=== PATIENT | male | born 1950 | race Caucasian/White ===

== ENCOUNTER → 2020-05-22 | Outpatient (CLI) | payer OTHER ==
[~2020-05-22] MED LIST: ACET500T15 PO; ATOR1TAB21 PO; FLOM0.4C39 PO; FLON1SPR; GABA-282 PO; METO1TAB32 PO; ROPI4TAB3 PO; TRAM50TA2 PO
== END ==
LOC: M LABSMTC 10:28
PROVIDERS: ATTEND Anesthesiology
DX: Z01.812 Encounter for preprocedural laboratory examination (principal); Z20.822 Contact with and (suspected) exposure to COVID-19

== ENCOUNTER 2020-05-27 09:55 | Day surgery (SDC) | payer MEDICARE, MEDICAID ==
[~2020-05-27] VITALS: Ht 167.6 cm; Wt 127.0 kg
[~2020-05-27 09:55] MED LIST changes: +NS 1,000 ML IV ONE
[2020-05-27] MEDS ORDERED: NS 1,000 ML IV ONE (10:40)
[2020-05-27] MEDS ORDERED: LIDOCAINE 2% 100MG/5ML SDV (FOR ANES.) As Ordered ONE (11:39)
[2020-05-27] MEDS ORDERED: propofoL 500 MG/50 ML VIAL As Ordered ONE (11:39)
--- NOTE | 2020-05-27 11:48 | ROOR ---
Patient Name: Abner Aragon Procedure Date: 05/27/2020 11:18 AM Date of : 1950 Age: 69 Room: [facility] Gender: Male Note Status: Finalized Procedure: Colonoscopy Indications: Screening for colorectal malignant neoplasm Providers: Abner VILLEGAS MD Referring MD: HUBERT DUQUE MD Requesting Provider: Medicines: Monitored Anesthesia Care Complications: No immediate complications. Procedure: Pre-Anesthesia Assessment: - The heart rate, respiratory rate, oxygen saturations, blood pressure, adequacy of pulmonary ventilation, and response to care were monitored throughout the procedure. The Colonoscope was introduced through the anus and advanced to the terminal ileum, with identification of the appendiceal orifice and IC valve. The colonoscopy was performed without difficulty. The patient tolerated the procedure well. The quality of the bowel preparation was good. Findings: The perianal and digital rectal examinations were normal. Three sessile polyps were found in the descending colon and splenic flexure. The polyps were 4 to 6 mm in size. These polyps were removed with a cold snare. Resection and retrieval were complete. Mild sigmoid diverticulosis and small internal hemorrhoids. The exam was otherwise without abnormality on direct and retroflexion views. Impression: - Three 4 to 6 mm polyps in the descending colon and at the splenic flexure, removed with a cold snare. Resected and retrieved. - Mild sigmoid diverticulosis and small internal hemorrhoids. - The examination was otherwise normal on direct and retroflexion views. Recommendation: - Await pathology results. - Telephone endoscopist for pathology results in 2 weeks. - Repeat colonoscopy in 3 - 5 years for surveillance based on pathology results. Procedure Code(s): --- Professional --- 99064, Colonoscopy, flexible; with removal of tumor(s), polyp(s), or other lesion(s) by snare technique Diagnosis Code(s): --- Professional --- K63.5, Polyp of colon Z12.11, Encounter for screening for malignant neoplasm of colon CPT copyright 2019 [employer]. All rights reserved. The codes documented in this report are preliminary and upon price accuracy supervisor review may be revised to meet current compliance requirements. Abner Villegas MD Abner VILLEGAS MD 05/27/2020 11:48:28 AM Electronically signed by Abner VILLEGAS MD Number of Addenda: 0 Note Initiated On: 05/27/2020 11:18 AM Estimated Blood Loss: Estimated blood loss: none.
[2020-05-27 12:18] VITALS: BP 144/88
== END 2020-05-27 12:21 | disposition home or self-care (01) ==
LOC: M OPP 09:55
PROVIDERS: ATTEND Internal Medicine Gastroenterology
DX: Z12.11 Encounter for screening for malignant neoplasm of colon (principal); K63.5 Polyp of colon; K57.30 Diverticulosis of large intestine without perforation or abscess without bleeding; K64.8 Other hemorrhoids; Z79.891 Long term (current) use of opiate analgesic; Z79.899 Other long term (current) drug therapy

== ENCOUNTER → 2024-05-18 | Outpatient (CLI) | payer MEDICARE, MEDICAID ==
[~2024-05-18] MED LIST changes: +GABA-1172 PO; -GABA-282 PO; -NS 1,000 ML IV ONE; -ROPI4TAB3 PO; +ROPI4TAB36 PO
== END ==
LOC: M RAD 08:53 → EDBD 09:30
PROVIDERS: ATTEND Physician Assistant
DX: I87.2 Venous insufficiency (chronic) (peripheral) (principal); R59.0 Localized enlarged lymph nodes

== ENCOUNTER → 2024-07-04 | Outpatient (POV) | payer MEDICARE, MEDICAID ==
[~2024-07-04] MED LIST changes: -FLOM0.4C39 PO; +TAMS-18 PO
== END ==
LOC: M IRPOV 13:10
PROVIDERS: ATTEND Radiology Diagnostic Radiology
DX: L97.919 Non-pressure chronic ulcer of unspecified part of right lower leg with unspecified severity (principal); I10 Essential (primary) hypertension; E78.5 Hyperlipidemia, unspecified; G47.33 Obstructive sleep apnea (adult) (pediatric); Z79.899 Other long term (current) drug therapy; Z87.2 Personal history of diseases of the skin and subcutaneous tissue; Z87.442 Personal history of urinary calculi; Z96.611 Presence of right artificial shoulder joint; Z96.612 Presence of left artificial shoulder joint; Z96.643 Presence of artificial hip joint, bilateral; Z96.653 Presence of artificial knee joint, bilateral

== ENCOUNTER → 2024-07-19 | Outpatient (CLI) | payer MEDICARE, MEDICAID ==
[~2024-07-19] MED LIST changes: +ISOVUE-370 76% 100ML VIAL As Ordered ONE
== END ==
LOC: M RAD 09:17
PROVIDERS: ATTEND Radiology Diagnostic Radiology
DX: I73.9 Peripheral vascular disease, unspecified (principal)
CPT/HCPCS: 75635; Q9967

== ENCOUNTER → 2024-08-27 | Outpatient (CLI) | payer MEDICARE, MEDICAID ==
[~2024-08-27] VITALS: Ht 167.6 cm; Wt 135.5 kg
[~2024-08-27] MED LIST changes: +ACETAMINOPHEN 325 MG TAB PO PRN; +CHLO25TA PO; +HEPARIN 1,000 UNITS/ML 10 ML VIAL (FOR RADIOLOGY & DIALYSIS ONLY) IV PRN; -ISOVUE-370 76% 100ML VIAL As Ordered ONE; +LIDOCAINE 2% 100 MG/5 ML SDV (FOR ANES.) As Ordered ONE; +LOSA100T46 PO; +LYRI75CA PO; +MIDAZOLAM INJ 2 MG/2 ML VIAL IV PRN; +NS (Normal Saline) 0.9% 1,000 ML IV SCH; +OMEP1CAP73 PO; +ONDANSETRON 4MG 2ML VIAL IV PRN; +PHENYLephrine 500MCG 5ML (100MCG/ML) SYRINGE As Ordered ONE; +PROPOFOL 1,000 MG/100 ML VIAL As Ordered ONE; +fentaNYL 100 MCG/2 ML INJECTION IV PRN; +propofoL 200 MG/20 ML VIAL As Ordered ONE
[2024-08-27 07:05] VITALS: TEMP 98.1
[2024-08-27] MEDS: ISOVUE-300 61% 100 ML VIAL IV SCH (10:32)
[2024-08-27] MEDS: LR 1,000 ML IV SCH (10:33)
[2024-08-27] MEDS: LIDOCAINE 1% MDV 20 ML VIAL SC SCH (10:33)
[2024-08-27] MEDS: PERCOCET 5MG/325MG TAB PO PRN (11:10)
[2024-08-27 13:00] VITALS: BP 129/79; O2SAT 96
== END ==
LOC: EDBD → M IRPRO 06:54
PROVIDERS: ATTEND Radiology Diagnostic Radiology
DX: I74.3 Embolism and thrombosis of arteries of the lower extremities (principal); Z96.651 Presence of right artificial knee joint; R09.89 Other specified symptoms and signs involving the circulatory and respiratory systems
CPT/HCPCS: 36247; 75710; 75774; 93975; C1760; C1769; C1887; C1894; J2371; Q9967

== ENCOUNTER → 2024-09-03 | Outpatient (POV) | payer MEDICARE, MEDICAID ==
[~2024-09-03] VITALS: Ht 165.1 cm; Wt 135.4 kg
[~2024-09-03] MED LIST changes: -ACETAMINOPHEN 325 MG TAB PO PRN; -HEPARIN 1,000 UNITS/ML 10 ML VIAL (FOR RADIOLOGY & DIALYSIS ONLY) IV PRN; -LIDOCAINE 2% 100 MG/5 ML SDV (FOR ANES.) As Ordered ONE; -MIDAZOLAM INJ 2 MG/2 ML VIAL IV PRN; -NS (Normal Saline) 0.9% 1,000 ML IV SCH; -ONDANSETRON 4MG 2ML VIAL IV PRN; -PHENYLephrine 500MCG 5ML (100MCG/ML) SYRINGE As Ordered ONE; -PROPOFOL 1,000 MG/100 ML VIAL As Ordered ONE; -fentaNYL 100 MCG/2 ML INJECTION IV PRN; -propofoL 200 MG/20 ML VIAL As Ordered ONE
[2024-09-03 09:24] VITALS: BP 138/78; O2SAT 97
== END ==
LOC: M IRPOV 08:59
PROVIDERS: ATTEND Registered Nurse School
DX: I70.201 Unspecified atherosclerosis of native arteries of extremities, right leg (principal)

== ENCOUNTER 2024-09-25 06:33 | Day surgery (SDC) | payer MEDICARE, MEDICAID ==
[~2024-09-25] VITALS: Ht 167.6 cm; Wt 137.3 kg
[2024-09-25] MEDS ORDERED: LIDOCAINE 2% 100 MG/5 ML SDV (FOR ANES.) As Ordered ONE (07:22)
[2024-09-25] MEDS ORDERED: GLYCOPYRROLATE INJ 0.2 MG/ML 2 ML VIAL As Ordered ONE (07:26)
[2024-09-25 08:02] VITALS: TEMP 98.3
[2024-09-25 08:18] VITALS: BP 133/66; O2SAT 95
== END 2024-09-25 08:53 | disposition home or self-care (01) ==
LOC: M OPP 06:33
PROVIDERS: ATTEND Internal Medicine Gastroenterology
DX: K22.4 Dyskinesia of esophagus (principal); R13.14 Dysphagia, pharyngoesophageal phase; G47.30 Sleep apnea, unspecified; I48.91 Unspecified atrial fibrillation; Z79.51 Long term (current) use of inhaled steroids; Z79.891 Long term (current) use of opiate analgesic; Z79.899 Other long term (current) drug therapy
CPT/HCPCS: 43249; J1596; J3010

== ENCOUNTER → 2024-12-03 | Outpatient (POV) | payer MEDICARE, MEDICAID ==
[~2024-12-03] VITALS: Ht 167.6 cm; Wt 144.5 kg
[~2024-12-03] MED LIST changes: +COMP1EAC MC
[2024-12-03 11:05] VITALS: BP 121/94; O2SAT 95
== END ==
LOC: M IRPOV 10:48
PROVIDERS: ATTEND Registered Nurse School
DX: I73.9 Peripheral vascular disease, unspecified (principal); Z79.82 Long term (current) use of aspirin; Z79.899 Other long term (current) drug therapy